=== PATIENT | female | born 1975 | race Caucasian/White ===

== ENCOUNTER 2017-06-25 14:53 | Outpatient (CLI) | payer OTHER ==
[~2017-06-25 14:53] MED LIST: PERCOCET 5-3251 EACH PO; [UNRECOGNIZED DRUG - OTHER] PO
== END 2017-06-25 15:02 | disposition home or self-care (01) ==
LOC: MAMO-SONO 14:53
DX: N60.49 Mammary duct ectasia of unspecified breast (principal); Z12.31 Encounter for screening mammogram for malignant neoplasm of breast

== ENCOUNTER 2019-04-27 11:03 | Outpatient (CLI) | payer OTHER | END 2019-04-27 11:05 | disposition home or self-care (01) | LOC: SONOGRAMA 11:03 | DX: N60.11 Diffuse cystic mastopathy of right breast (principal) ==

== ENCOUNTER 2021-05-01 11:28 | Outpatient (CLI) | payer OTHER | END 2021-05-01 11:46 | disposition home or self-care (01) | LOC: MAMO-SONO 11:28 | PROVIDERS: ATTEND Obstetrics & Gynecology | DX: N60.11 Diffuse cystic mastopathy of right breast (principal); Z12.31 Encounter for screening mammogram for malignant neoplasm of breast ==

== ENCOUNTER → 2021-12-26 | Outpatient (CLI) | payer OTHER | END | disposition home or self-care (01) | LOC: MAMO-SONO 11:25 | PROVIDERS: ATTEND Obstetrics & Gynecology | DX: N60.11 Diffuse cystic mastopathy of right breast (principal) ==

== ENCOUNTER 2023-01-16 11:09 | Outpatient (CLI) | payer OTHER | END 2023-01-16 11:22 | disposition home or self-care (01) | LOC: MAMO-SONO 11:09 | PROVIDERS: ATTEND Obstetrics & Gynecology | DX: N60.11 Diffuse cystic mastopathy of right breast (principal); Z12.31 Encounter for screening mammogram for malignant neoplasm of breast ==

== ENCOUNTER 2024-02-11 10:35 | Outpatient (CLI) | payer OTHER | END 2024-02-11 10:40 | disposition home or self-care (01) | LOC: MAMO-SONO 10:35 | PROVIDERS: ATTEND Obstetrics & Gynecology | DX: N60.11 Diffuse cystic mastopathy of right breast (principal) ==